=== PATIENT | male | born 1990 | race American Indian/Alaskan Native ===

== ENCOUNTER 2016-03-30 10:21 | Emergency (ER) | payer SELFPAY ==
[2016-03-30 10:34] VITALS: BP 107/63
[2016-03-30 11:00] LABS: Basophils % (Auto) 0.6 % (0.0-1.8); Hematocrit 43.6 % (35.5-45.6); Hemoglobin 14.7 gm/dl (11.8-15.2); Mean Corpuscular HGB Conc 34 % (32-34); Mean Corpuscular Hemoglobin 32 pg (28-32); Mean Corpuscular Volume 94 fl (84-94); Platelet Count 231 K/mm3 (140-440); Red Blood Count 4.67 M/mm3 (3.65-5.03); Red Cell Distribution Width 13.5 % (13.2-15.2); White Blood Count 7.7 K/mm3 (4.5-11.0)
[2016-03-30 11:19] LABS: Alanine Aminotransferase 9 units/L (7-56); Albumin 4.3 g/dL (3.9-5); Albumin/Globulin Ratio 1.5 %; Alkaline Phosphatase 78 units/L (35-129); Anion Gap 17 mmol/L; BUN/Creatinine Ratio 11.25; Bilirubin,Total 0.5 mg/dL (0.1-1.2); Blood Urea Nitrogen 9 mg/dL (9-20); Carbon Dioxide 27 mmol/L (22-30); Chloride 104.7 mmol/L (98-107); Glucose 82 mg/dL (75-100); Lipase 13 units/L (13-60); Sodium 145 mmol/L (137-145); Total Protein 7.1 g/dL (6.3-8.2)
[2016-03-30 11:40] LABS: Bilirubin,Urine NEG (Negative); Blood,Urine NEG (Negative); Ketones,Urine NEG (Negative); Leukocyte Esterase,Urine NEG (Negative); Mucus,Urine FEW /HPF; Nitrite,Urine NEG (Negative); Protein,Urine <15 mg/dL mg/dL (Negative); Urobilinogen,Urine < 2.0 mg/dL (<2.0)
[2016-03-30] MEDS ORDERED: PROTONIX PO ONE (20:36)
--- NOTE | 2016-03-30 20:40 | Emergency Department Report ---
HPI - General Chief Complaint: GI Bleed Time Seen by Provider: 03/30/16 20:25 - HPI HPI: This is a 25-year-old Afro-[place] male presents to the emergency department with complaint of a six-month history of intermittent nausea, vomiting and hematemesis. She says that it occurs mostly after he has been drinking the night before and he admits to drinking often if not every day. Occasionally has some pain in the epigastrium but also feels it in his back. He says that the last day or so he also has noticed some blood in his urine but denies any problems with urination. No blood seen in the stool and no problem with bowel movements. He denies any past medical history. He does not have a primary care doctor. He has not taken anything for symptoms prior to presentation. No recent travel or sick contacts at home. He is a tobacco smoker. He denies any numbness or paresthesias or any neurological deficits. No problems with ambulation. ED Past Medical Hx - Social History Smoking Status: Current Every Day Smoker Substance Use Type: None - Medications Home Medications: Home Medications Medication Instructions Recorded Confirmed Last Taken Type Omeprazole Magnesium [PriLOSEC Otc] 20 mg PO QDAY #30 tablet. 03/30/16 Unknown Rx Ondansetron [Zofran Odt] 4 mg PO Q8H PRN #12 tab.noel 03/30/16 Unknown Rx ED Review of Systems ROS: Stated complaint: VOMITING BLOOD Other details as noted in HPI Comment: All other systems reviewed and negative Constitutional: denies: chills, fever Eyes: denies: eye pain, eye discharge, vision change ENT: denies: ear pain, throat pain Respiratory: denies: cough, shortness of breath, wheezing Cardiovascular: denies: chest pain, palpitations Gastrointestinal: abdominal pain, nausea, vomiting, hematemesis Genitourinary: hematuria. denies: dysuria Musculoskeletal: back pain. denies: arthralgia Skin: denies: rash, lesions Neurological: denies: headache, weakness, paresthesias Physical Exam - Physical Exam Vital Signs: Vital Signs 03/30/16 10:31 Temperature 98 F Pulse Rate 64 Respiratory 20 Rate Blood Pressure 107/63 O2 Sat by Pulse 100 Oximetry Physical Exam: GENERAL: The patient is well-developed well-nourished. Patient does not appear in any acute distress. HEENT: Normocephalic. Atraumatic. Extraocular motions are intact. Patient has moist mucous membranes. Pupils equal reactive to light bilaterally. No nystagmus. Oropharynx clear. NECK: Supple. Trachea is midline. CHEST/LUNGS: Clear to auscultation. There is no respiratory distress noted. HEART/CARDIOVASCULAR: Regular. There is no tachycardia. There is no gallop rub or murmur. ABDOMEN: Abdomen is soft, nontender. Patient has normal bowel sounds. There is no abdominal distention. No guarding rebound tenderness. SKIN: There is no rash. There is no edema. There is no diaphoresis. NEURO: The patient is awake, alert, and oriented. The patient is cooperative. The patient has no focal neurologic deficits. The patient has normal speech and gait. MUSCULOSKELETAL: There is no tenderness or deformity. There is no limitation range of motion. There is no evidence of acute injury. ED Course Vital Signs 03/30/16 10:31 Temperature 98 F Pulse Rate 64 Respiratory 20 Rate Blood Pressure 107/63 O2 Sat by Pulse 100 Oximetry ED Medical Decision Making - Lab Data Result diagrams: 03/30/16 10:42 03/30/16 10:42 - Radiology Data Radiology results: image reviewed interpreted by me: Chest x-ray did not show any acute process. Heart is normal shape and size. No effusions. No pneumothorax. No signs of pneumonia seen. Abdominal x-ray shows some stool throughout the colon but no signs of obstruction or any acute process. - Medical Decision Making 25-year-old male presents with 2 complaints. One is long-standing going on 6 months with some epigastric abdominal pain after vomiting with some hematemesis. This all intermittent and the patient says related to alcohol abuse. Patient's labs been unremarkable including normal transaminases. There is no sign of hematemesis in the emergency department and no current nausea or vomiting. Patient's other complaint is hematuria but his urinalysis today does not show any signs of hematuria or any urinary tract infection. Patient's vital signs are stable throughout his ED course. Patient was given a PPI and will go home with a prescription for Prilosec and some Zofran to use when he does have nausea. He'll be given referrals for primary care and GI. He will return to the ER with any worsening symptoms or any acute distress. - Differential Diagnosis gastritis, UTI, malignancy, esophageal varices, Lin-Guzman Critical Care Time: No Critical care attestation.: If time is entered above; I have spent that time in minutes in the direct care of this critically ill patient, excluding procedure time. ED Disposition Clinical Impression: Hematuria Hematemesis Qualifiers: Nausea presence: with nausea Qualified Code(s): K92.0 - Hematemesis; R11.0 - Nausea Disposition: DISCHARGED TO HOME OR SELFCARE Is pt being admited?: No Does the pt Need Aspirin: No Condition: Stable Instructions: Acute Hematuria (ED), Acute Nausea and Vomiting (ED) Additional Instructions: Please follow-up with the primary care and gastroenterology referrals that I given you. Return to the emergency department with any worsening of your symptoms or any acute distress. Prescriptions: Omeprazole Magnesium [PriLOSEC Otc] 20 mg PO QDAY #30 tablet. Ondansetron [Zofran Odt] 4 mg PO Q8H PRN #12 tab.rapdis PRN Reason: Nausea Referrals: PRIMARY CARE, [Primary Care Provider] - 3-5 Days SINCERE GONZALEZ MD [Staff Physician] - 3-5 Days AUBREE BERMUDEZ MD [Staff Physician] - 3-5 Days [facility] [Outside] - 3-5 Days Forms: Accompanied Note Time of Disposition: 21:36
--- NOTE | 2016-03-31 07:42 | XRay Report ---
ABDOMINAL SERIES INDICATION: Abdominal pain, hematemesis. Painful urination and cough in blood for 6 months. Blood in urine. Smoker. COMPARISON: 05/24/2007 FINDINGS: Abdominal series, 4 radiographs, demonstrate overall nonobstructive bowel gas pattern with mild to moderate stool throughout the colon. No focal suspicious calcifications, pneumatosis or pneumoperitoneum. Included chest demonstrates normal cardiomediastinal silhouette and clear lungs. Unremarkable bones. CONCLUSION: No acute radiographic abnormality. Constipation may though be correlated for clinically in an appropriate setting. Thank you for the opportunity to participate in this patient's care.
== END 2016-03-30 22:32 | disposition home or self-care (01) ==
LOC: ED 10:21
DX: R31.9 Hematuria, unspecified (principal); K92.0 Hematemesis; R11.0 Nausea; F17.200 Nicotine dependence, unspecified, uncomplicated; Z91.011 Allergy to milk products; Z91.018 Allergy to other foods
CPT/HCPCS: 36415; 74022; 80053; 81001; 83690; 85025; 86850; 86900; 86901; 99284; G0480; 80320

== ENCOUNTER 2018-01-11 00:22 | Emergency (ER) | payer SELFPAY ==
[2018-01-11 01:37] LABS: Basophils # (Auto) 0.1 K/mm3 (0.0-0.1); Eosinophils # (Auto) 0.3 K/mm3 (0.0-0.4); Eosinophils % (Auto) 4.8 % (0.0-4.3); Hematocrit 42.2 % (35.5-45.6); Hemoglobin 14.7 gm/dl (11.8-15.2); Lymphocytes # (Auto) 2.8 K/mm3 (1.2-5.4); Lymphocytes % (Auto) 40.7 % (13.4-35.0); Mean Corpuscular HGB Conc 35 % (32-34); Mean Corpuscular Hemoglobin 33 pg (28-32); Mean Corpuscular Volume 96 fl (84-94); Monocytes # (Auto) 0.6 K/mm3 (0.0-0.8); Monocytes % (Auto) 8.3 % (0.0-7.3); Platelet Count 268 K/mm3 (140-440); Red Cell Distribution Width 12.9 % (13.2-15.2)
[2018-01-11 01:52] LABS: BUN/Creatinine Ratio 8; Blood Urea Nitrogen 6 mg/dL (9-20); Calcium 8.6 mg/dL (8.4-10.2); Hemolysis Index 5
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
[2018-01-11 13:02] LABS: Bilirubin,Urine NEG (Negative); Blood,Urine NEG (Negative); Color,Urine Yellow (Yellow); Mucus,Urine FEW /HPF; Protein,Urine <15 mg/dL mg/dL (Negative)
[2018-01-11 13:07] LABS: Amphetamine Screen,Urine PRESUMPTIVE NEGATIVE; Benzodiazepines Screen,Urine PRESUMPTIVE NEGATIVE; Cocaine Screen,Urine PRESUMPTIVE NEGATIVE; Methadone Screen,Urine PRESUMPTIVE NEGATIVE; Opiate Screen,Urine PRESUMPTIVE NEGATIVE
[2018-01-11 13:24] LABS: Cannabinoid Screen,Urine PRESUMPTIVE POSITIVE
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
[2018-01-12 14:50] LABS: Albumin 4.1 g/dL (3.9-5); Bilirubin,Direct 0.3 mg/dL (0-0.2)
[2018-01-13 09:04] VITALS: BP 113/77
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
== END 2018-01-13 12:57 | disposition home or self-care (01) ==
LOC: EEVIPCON 00:22 → ED 00:22
DX: F10.129 Alcohol abuse with intoxication, unspecified (principal); F12.10 Cannabis abuse, uncomplicated; F17.200 Nicotine dependence, unspecified, uncomplicated; Z91.018 Allergy to other foods; Z79.899 Other long term (current) drug therapy
CPT/HCPCS: 36415; 80048; 80074; 80307; 81001; 85025; 99284; G0480; 80320